=== PATIENT | female | born 1985 | race Two or more races ===

== ENCOUNTER 2018-05-26 19:05 | Emergency (ER) | payer MEDICAID ==
[~2018-05-26] VITALS: Ht 152.4 cm; Wt 61.2 kg
[2018-05-26] MEDS ORDERED: PRE NATAL VITAMINS (19:34)
--- NOTE | 2018-05-26 19:45 | NUR ---
HEART TONES WERE NOT ABLE TO BE AUSCULATATED AT THIS TIME VIA DOPLER
--- NOTE | 2018-05-26 20:00 | NUR ---
Patient discharged to home in stable conditon. Patient calm and cooperative prior to discharge. Written and verbal after care instructions given. Patient verbalizes understanding of instructions. Patient able to ambulate unassisted with a steady gait. Patient left with all personal belongings.
[2018-05-26 20:06] VITALS: BP 101/66
== END 2018-05-26 20:00 | disposition home or self-care (01) ==
LOC: ER 19:08
DX: O99.342 Other mental disorders complicating pregnancy, second trimester (principal); O26.892 Other specified pregnancy related conditions, second trimester; F41.9 Anxiety disorder, unspecified; R06.4 Hyperventilation; Z3A.16 16 weeks gestation of pregnancy
CPT/HCPCS: 99284; A4663